=== PATIENT | female | born 1945 ===

== ENCOUNTER 2023-04-25 08:15 | Inpatient (IN) | payer OTHER ==
[~2023-04-25] VITALS: Ht 160 cm; Wt 81.6 kg
[2023-04-25 08:53] LABS: HEMATOCRIT 43.4 % (36.0-45.00); HEMOGLOBIN 14.4 g/dL (12.0-15.00); MEAN CELL VOLUME 87.2 fL (80.00-100.00); MEAN CORPUSCULAR HEMOGLOBIN 28.9 pg (27.00-32.0); MEAN CORPUSCULAR HGB CONC 33.1 g/dl (32.0-36.0); PLATELET COUNT 296 K/uL (150-450); RED BLOOD COUNT 4.97 M/uL (4.00-6.00)
[2023-04-25 09:29] LABS: PH,URINE 7.5 (5.0-8.0); URINE APPEARANCE Clear; URINE BILIRRUBIN Negative (NEGATIVE); URINE BLOOD NHT; URINE COLOR Yellow; URINE GLUCOSE Negative (NEGATIVE); URINE LEUKOCYTE Negative; URINE NITRATE Negative; URINE PROTEIN Trace (NEGATIVE); URINE UROBILINOGEN 0.2 E.U./dl
[2023-04-25 09:34] LABS: URINE BACTERIA 15.1 uL (0.0-1933); URINE EPITHELIAL CELLS 5.2 uL (0.0-38.8); URINE RBC 21.4 uL (0.0-20.8)
[2023-04-25 09:38] LABS: PARTIAL THROMBOPLASTIN TIME 29.2 SECONDS (22.0-34.0); PROTHROMBIN TIME 10.5 SECONDS (9.0-11.5)
[2023-04-25 09:43] LABS: URINE WBC 1.2 uL (0.0-23.2)
[2023-04-25 09:44] LABS: CALCIUM 10.1 mg/dL (8.5-10.1); CREATININE SERUM 0.81 mg/dL (0.55-1.02); GFR 68.21; POTASSIUM 4.57 mEq/L (3.5-5.1)
[2023-04-25] MEDS ORDERED: GLUMETZA500 MG PO (10:00)
[2023-04-25] MEDS ORDERED: METOP PO (10:01)
[2023-04-25] MEDS ORDERED: [UNRECOGNIZED DRUG - OTHER] PO (10:01)
[2023-04-25] MEDS ORDERED: LIPITOR80 MG PO (10:02)
[2023-04-25] MEDS ORDERED: TRENTAL PO (10:02)
[2023-04-25] MEDS ORDERED: CILOSTAZOL50 MG PO (10:02)
[2023-04-25] MEDS ORDERED: ADULT LOW DOSE81 M1 PO (10:02)
[2023-04-25] MEDS ORDERED: NORVA PO (10:03)
[2023-04-25] MEDS ORDERED: PANADOL EXTRA500 MG PO (10:04)
[2023-04-25] MEDS ORDERED: WELLBUTRIN SR150 MG PO (10:04)
[2023-04-30] MEDS ORDERED: VITAMIN E180 M1 (15:19)
[2023-04-30] MEDS ORDERED: PANTOPRAZOLE SO40 MG (15:20)
[2023-04-30] MEDS ORDERED: IRBESARTAN-HCT1 EAC1 (15:20)
[2023-04-30] MEDS ORDERED: ISOSORBIDE MONO30 M2 (15:20)
[2023-04-30] MEDS ORDERED: AMLODIPINE BESY10 MG (15:20)
[2023-04-30] MEDS ORDERED: PENTOXIFYLLINE400 MG (15:20)
[2023-04-30] MEDS ORDERED: METOPROLOL SUCC50 MG (15:20)
[2023-04-30 18:30] LABS: HEMATOCRIT 40.9 % (36.0-45.00); HEMOGLOBIN 13.6 g/dL (12.0-15.00); RED BLOOD COUNT 4.7 M/uL (4.00-6.00)
[2023-05-01 07:58] LABS: HEMATOCRIT 43.5 % (36.0-45.00); HEMOGLOBIN 14.1 g/dL (12.0-15.00); MEAN CELL VOLUME 88.6 fL (80.00-100.00); MEAN CORPUSCULAR HEMOGLOBIN 28.7 pg (27.00-32.0); MEAN CORPUSCULAR HGB CONC 32.4 g/dl (32.0-36.0); PLATELET COUNT 298 K/uL (150-450); RED BLOOD COUNT 4.91 M/uL (4.00-6.00); RED CELL DISTRIBUTION WIDTH 14.8 % (11.5-14.5)
[2023-05-02] MEDS ORDERED: OXYC1TAB9 PO (06:30)
[2023-05-02] MEDS ORDERED: BACTRIM DS TAB1 EACH PO (06:30)
[2023-05-02] MEDS ORDERED: INTEGRA PLUS C1 EACH PO (06:30)
[2023-05-02] MEDS ORDERED: XARELTO10 MG PO (06:30)
[2023-05-02 07:30] LABS: HEMATOCRIT 35.7 % (36.0-45.00); MEAN CELL VOLUME 86.1 fL (80.00-100.00); MEAN CORPUSCULAR HGB CONC 33.7 g/dl (32.0-36.0); PLATELET COUNT 232 K/uL (150-450); RED BLOOD COUNT 4.14 M/uL (4.00-6.00)
== END 2023-05-02 18:46 | DRG 470 ==
LOC: O/R 04-30 06:15 → SURH 04-30 08:15
PROVIDERS: ADMIT Orthopaedic Surgery Sports Medicine; ATTEND Orthopaedic Surgery Sports Medicine
PROC: 3E0F7SF Introduction of Other Gas into Respiratory Tract, Via Natural or Artificial Opening (ICD-10-PCS; 2023-04-30)
PROC: 0SRD0J9 Replacement of Left Knee Joint with Synthetic Substitute, Cemented, Open Approach (ICD-10-PCS; principal; 2023-04-30 12:45)
DX: M17.12 Unilateral primary osteoarthritis, left knee (principal); E11.9 Type 2 diabetes mellitus without complications; I10 Essential (primary) hypertension; E78.5 Hyperlipidemia, unspecified; Z79.4 Long term (current) use of insulin